=== PATIENT | male | born 1985 ===

== ENCOUNTER → 2024-08-06 | Outpatient (CLI) | payer OTHER ==
--- NOTE | 2024-08-06 11:51 | CT ---
EXAMINATION TYPE: CT cervical spine wo con CT DLP: 1075.1 mGycm, Automated exposure control for dose reduction was used. DATE OF EXAM: 08/06/2024 11:43 AM COMPARISON: None. CLINICAL INDICATION:Male, 39 years old with history of M54.2 CERVICALG M79.89 OTHER SPECIFIED SOFT TI SSUE; PHH, lump to SC joint, pain TECHNIQUE: Axial CT images from the skull base to the inferior aspect of T2 we obtained without intra venous contrast. Coronal and sagittal reformatted images were also reviewed. FINDINGS: Fracture: None. Osseous structures: Partial fusion of the C4-C5 vertebral bodies. Fusion of the left C4-C5 facet join t. Vertebral alignment: No spondylolisthesis. Mild dextrocurvature in the cervical spine with apex at C4 -C5. Degenerative changes of the left sternoclavicular joint with joint space narrowing and subchondr al cystic change. Spinal canal/Neural Foramina: Broad-based disc bulge at C3-C4 with minimal effacement of the anterior thecal sac. No other evidence of significant spinal canal narrowing. Mild left neuroforaminal stenosis at C4-C5. Uncovertebral joint hypertrophy with mild to moderate bilateral neuroforaminal stenosis C5-C6. No oth er significant neural foraminal stenosis of the cervical spine. Neck soft tissues: Prevertebral soft tissues are within normal limits. Other: The airway is patent. The lung apices are clear. IMPRESSION: 1. No evidence of cervical spine fracture. 2. Minimal multilevel degenerative disc disease. 3. Moderate degenerative changes at the left sternoclavicular joint. [facility], , 08/06/2024 11:49 AM
== END | disposition home or self-care (01) ==
LOC: RADCTMAIN 11:09
PROVIDERS: ATTEND Family Medicine
DX: M50.30 Other cervical disc degeneration, unspecified cervical region (principal); M79.89 Other specified soft tissue disorders; M47.812 Spondylosis without myelopathy or radiculopathy, cervical region
CPT/HCPCS: 72125